=== PATIENT | male | born 1990 | race Caucasian/White ===

== ENCOUNTER 2017-04-30 17:39 | Emergency (ER) | payer OTHER, BC ==
[~2017-04-30] VITALS: Ht 188 cm; Wt 102.8 kg
[2017-04-30] MEDS ORDERED: LOSA50TA20 PO (17:54)
[2017-04-30] MEDS ORDERED: METO1TAB32 PO (17:54)
[2017-04-30] MEDS ORDERED: NAPR500T PO (18:43)
[2017-04-30 19:12] VITALS: BP 158/88
== END 2017-04-30 19:27 | disposition home or self-care (01) ==
LOC: M ED 17:39
DX: M76.61 Achilles tendinitis, right leg (principal); Z79.899 Other long term (current) drug therapy

== ENCOUNTER → 2023-12-25 | Outpatient (REF) | payer BC ==
[~2023-12-25] MED LIST: LOSA50TA28 PO; METO1TAB32 PO; NAPR-837 PO
[2023-12-25 18:33] LABS: CHOLESTEROL RISK RATIO 3.34 (<5); HDL CHOLESTEROL 48.8 MG/DL (>40); LDL CHOLESTEROL 77.6 MG/DL (<100); NON-HDL-C 114.2 MG/DL
== END ==
LOC: M LAB REF 17:09
PROVIDERS: ATTEND Internal Medicine Nephrology
DX: N18.2 Chronic kidney disease, stage 2 (mild) (principal); E78.2 Mixed hyperlipidemia